=== PATIENT | male | born 1960 | race African-American/Black ===

== ENCOUNTER 2020-10-14 07:53 | Day surgery (SDC) | payer BC ==
--- NOTE | 2020-10-09 10:33 | RAD REPORT ---
EXAM DESCRIPTION: RAD - Chest Pa And Lat (2 Views) - 10/09/2020 10:27 am CLINICAL HISTORY: preop COMPARISON: CHEST PA AND LAT 2 VIEW dated 07/01/2014 FINDINGS: No evidence of edema or pneumonia. The heart size is within normal limits.No acute osseous abnormality. No significant pleural effusions or pneumothorax. IMPRESSION: No acute cardiopulmonary disease.
[2020-10-09 11:03] LABS: Absolute Lymphocytes (CBC) 2.4 K/uL (0.7-4.9); Basophils % 0.8 % (0-1.3); Hematocrit 44.2 % (39.6-49.0); Lymphocytes % 33.6 % (15.3-44.8); MPV 8.8 fL (7.6-11.3)
[2020-10-09 11:06] LABS: Protime INR 1.09
[2020-10-09 12:06] LABS: ALT/SGPT 31 U/L (12-78); AST/SGOT 17 U/L (15-37); Albumin 3.9 g/dL (3.4-5.0); Alkaline Phosphatase 92 U/L (45-117); BUN Blood Urea Nitrogen 14 mg/dL (7-18); Bicarbonate 27 mmol/L (21-32); Bilirubin Total 0.4 mg/dL (0.2-1.0); Glucose Level 92 mg/dL (74-106); Potassium 3.7 mmol/L (3.5-5.1); Protein, Total 8.6 g/dL (6.4-8.2); Sodium Level 139 mmol/L (136-145)
[~2020-10-14 07:53] MED LIST: AMPICILLIN SODIUM 2 GM in NA CHLORIDE 0.9% 100 ML IVPB ONE; Gentamicin Inj 240 MG in NA CHLORIDE 0.9% 100 ML IV ONE
[2020-10-14] MEDS ORDERED: Ringers Lactate 1,000 ML IV ONE (08:25)
[2020-10-14] MEDS ORDERED: OPIUM/BELLADONNA SUPPOS (30-16.2 MG) PR ONE ×2 (09:41→12:23)
[2020-10-14] MEDS ORDERED: PHENAZOPYRIDINE 100MG TAB PO ONE ×2 (09:41→12:24)
[2020-10-14] MEDS ORDERED: propofoL 200 MG/20 ML VIAL IV ONE (10:03)
[2020-10-14] MEDS ORDERED: FENTANYL CITR 100 MCG/2 ML ONE (10:03)
[2020-10-14] MEDS ORDERED: MIDAZOLAM HCL 2 MG/2 ML INJ ONE (10:03)
[2020-10-14] MEDS ORDERED: LIDOCAINE 1% MPF 5 ML VIAL ONE (10:03)
[2020-10-14] MEDS ORDERED: KETOROLAC 30 MG/ML INJ ONE (10:27)
[2020-10-14] MEDS ORDERED: ONDANSETRON 4 MG/2 ML VIAL ONE (10:28)
[2020-10-14] MEDS ORDERED: EPHEDRINE SULF 50 MG/ML VIAL ONE (11:07)
[2020-10-14] MEDS ORDERED: NS 0.9% VIAL 10 ML ONE (11:07)
[2020-10-14] MEDS: CODEINE 30MG/APAP 300MG TAB PO PRN ×2 (12:04→12:56)
[2020-10-14] MEDS ORDERED: CODEINE 30MG/APAP 300MG TAB ONE ×2 (12:24→13:18)
--- NOTE | 2020-10-14 12:57 | OP ---
Surgeon: IESHA WYATT Preoperative Diagnosis: Benign prostate hypertrophy with lower urinary tract obstructive symptoms. Postoperative Diagnosis: Benign prostate hypertrophy with lower urinary tract obstructive symptoms. Principle Procedures: Cystoscopy and transurethral resection of the prostate using the bipolar devic e. Indication For Procedure: Mr. Elam presented to the Urology Clinic with obstructive urinary sympto ms. He was counseled about options for medical therapy, having been on Flomax and finasteride for so me time now, but his urinary symptoms persisted despite it. As a result, cystoscopic evaluation reve aled significant intravesical projection of the entirety of his prostate, but particularly a median l obe that abutted the trigone obscuring the ureteral orifices. As a result, he was counseled on the s urgical options and given the significance of the intravesical projection, bipolar resection was ivy mmended. Procedure In Detail: The patient was consented in the preoperative holding area before being transfe rred to the operative suite where general anesthesia was induced. He was given ampicillin and gentam icin 240 mg IV antimicrobial prophylaxis. Pneumo boots were provided for DVT prophylaxis. He was pl aced in the lithotomy position, padded and secured to the table appropriately. His genitalia were pr epped using Hibiclens and draped in standard fashion. The case was begun using urethral sounds to di late his meatus and fossa navicularis to 30-Polish. Then using the visual obturator, the 26-Polish r esectoscope was used to traverse the urethra and into the bladder with ease. As previously noted cys toscopically, there was significant elevation of the median bar with large projection intravesically of the median lobe abutting the trigone. The ureteral orifices were visualized above by medializing the median lobe. The remainder of the bladder was free of any mucosal lesions, foreign bodies, or st ones. As a result, using normal saline as the irrigant, I began resection of the median lobe at the level with direct visualization of the ureteral orifices. The entirety of the intravesical component of the median lobe was resected and then the elevation of the median bar was resected down to the le mary of the bladder neck. The entirety of the rest of the median bar was then resected down to the le mary of the verumontanum until a smooth trough had been created. I then resected the left lateral lob e extending to the anterior zone of the prostate and to the level of the verumontanum, but not beyond it. Careful fulguration was then performed of the left lateral lobar portion of the prostate and th e portion of the trough median lobe that was resected. I then turned my attention to the right later al lobe, which was similarly resected to the anterior zone with any intravesical projection also rese cted there. This was again taken to the level of the verumontanum. Careful fulguration was then per formed of the entire intraprostatic urethral lumen. The prostate urethral chips were then removed by Ellik evacuation from within the bladder, and these were collected and sent for pathologic analysis. Then with the bladder decompressed, I performed a careful search for any bleeding and fulgurated an y ongoing bleeding vessels. When the entirety of the prostate fossa was completely hemostatic, and n o prostate chips were present within the bladder, I then left the bladder full and removed the resect oscope. I then placed a 24-Polish 3-way Booth catheter into his bladder with ease and placed 30 mL o f sterile water in the balloon. The catheter was placed to moderate traction, and the patient had be en taken out of lithotomy. He was then transferred to a stretcher after being awakened from general anesthesia, and then he was transferred to the recovery room in good condition. Complications: None. Discharge Disposition: He should follow up in the Urology Clinic with nurse practitioner, Malu barnett 3-5 days. Prescriptions for Bactrim Double Strength tablet twice daily for 7 days was provided so he could take it until 24 hours after the catheter was removed. An additional prescription for Tylen ol with Codeine was also sent. He was recommended to take Azo for dysuria, but this would mostly be applicable on the day of catheter removal and voiding trial. Subsequent follow up with me may be est ablished in about 3 months as an interval assessment unless he is having significant ongoing urinary issues of concern. He may continue the finasteride for an additional 6 months to stabilize the prost ate regrowth and then stop it at that time. The Flomax may be continued for 1 month and then discontinued if his urinary symptoms are stab le. WR/MODL Voice ID: [id number] Report ID: [id number]
[2020-10-14 13:16] VITALS: TEMP 96.9
[2020-10-14 14:09] VITALS: BP 123/76; O2SAT 100
== END 2020-10-14 14:30 | disposition home or self-care (01) ==
LOC: OR 07:53
PROVIDERS: ATTEND Urology
PROC: 0VT08ZZ Resection of Prostate, Via Natural or Artificial Opening Endoscopic (ICD-10-PCS; principal; 2020-10-14 09:00)
DX: N40.1 Benign prostatic hyperplasia with lower urinary tract symptoms (principal); N48.6 Induration penis plastica; N43.3 Hydrocele, unspecified; N43.42 Spermatocele of epididymis, multiple; Z20.822 Contact with and (suspected) exposure to COVID-19
CPT/HCPCS: 93005; 87088; 85025; 87086; 36415; 85610; 88305; 80053; 71046; 52601; U0002; J2704; J1580; J2250; J3010; J7120; J2405; J0290